=== PATIENT | male | born 1960 | race Caucasian/White ===

== ENCOUNTER 2019-05-07 09:46 | Outpatient (CLI) | payer OTHER ==
[~2019-05-07 09:46] MED LIST: ABILIFY5 MG; LEXAPRO20 MG; LOSARTAN POTASS50 MG
== END 2019-05-07 09:59 | disposition home or self-care (01) ==
LOC: SONOGRAMA 09:46
DX: N20.0 Calculus of kidney (principal); R31.1 Benign essential microscopic hematuria

== ENCOUNTER → 2020-05-30 11:37 | Outpatient (CLI) | payer OTHER ==
[~2020-05-30 11:37] MED LIST changes: +MIRALAX17 GM PO; +NEURONTIN300 MG PO; +OLANZAPINE5 MG PO; +TRAZODONE HCL150 MG PO; +TYLENOL ARTHRI650 MG PO; +ULTRAM50 MG PO; +WELLBUTRIN XL300 MG PO
== END | disposition home or self-care (01) ==
LOC: EKG 11:37
PROVIDERS: ATTEND Surgery
DX: I10 Essential (primary) hypertension (principal)

== ENCOUNTER 2020-06-01 06:05 | Day surgery (SDC) | payer OTHER ==
[~2020-06-01 06:05] MED LIST changes: -MIRALAX17 GM PO; -NEURONTIN300 MG PO; -TYLENOL ARTHRI650 MG PO; -ULTRAM50 MG PO
[2020-06-01] MEDS ORDERED: TYLENOL ARTHRI650 MG PO (09:31)
[2020-06-01] MEDS ORDERED: NEURONTIN300 MG PO (09:31)
[2020-06-01] MEDS ORDERED: MIRALAX17 GM PO (09:31)
[2020-06-01] MEDS ORDERED: ULTRAM50 MG PO (09:31)
== END 2020-06-01 15:10 | disposition home or self-care (01) ==
LOC: CIR.AMB 06:05
PROVIDERS: ATTEND Surgery
DX: K40.91 Unilateral inguinal hernia, without obstruction or gangrene, recurrent (principal); K42.9 Umbilical hernia without obstruction or gangrene; Z20.828 Contact with and (suspected) exposure to other viral communicable diseases

== ENCOUNTER 2021-04-27 08:47 | Outpatient (CLI) | payer OTHER ==
[~2021-04-27 08:47] MED LIST changes: +MIRALAX17 GM PO; +NEURONTIN300 MG PO; +TYLENOL ARTHRI650 MG PO; +ULTRAM50 MG PO
== END 2021-04-27 09:05 | disposition home or self-care (01) ==
LOC: SONOGRAMA 08:47 → MAMO-SONO 09:45
PROVIDERS: ATTEND Internal Medicine
DX: Q61.01 Congenital single renal cyst (principal); R10.84 Generalized abdominal pain

== ENCOUNTER 2021-10-30 08:53 | Outpatient (CLI) | payer OTHER | END 2021-10-30 08:54 | disposition home or self-care (01) | LOC: MRI 08:53 | PROVIDERS: ATTEND Psychiatry & Neurology Psychiatry | DX: F33.2 Major depressive disorder, recurrent severe without psychotic features (principal); G31.89 Other specified degenerative diseases of nervous system | CPT/HCPCS: 70552 ==

== ENCOUNTER 2021-10-30 10:48 | Outpatient (CLI) | payer OTHER | END 2021-10-30 10:54 | disposition home or self-care (01) | LOC: LAB 10:48 | PROVIDERS: ATTEND Radiology Diagnostic Radiology | DX: F33.2 Major depressive disorder, recurrent severe without psychotic features (principal) ==

== ENCOUNTER → 2022-03-22 | Outpatient (CLI) | payer OTHER | END | disposition home or self-care (01) | LOC: LAB 18:59 | PROVIDERS: ATTEND Urology | DX: R97.20 Elevated prostate specific antigen [PSA] (principal) ==

== ENCOUNTER 2023-01-06 07:18 | Outpatient (CLI) | payer OTHER | END 2023-01-06 07:20 | disposition home or self-care (01) | LOC: NUCLEAR 07:18 | PROVIDERS: ATTEND Urology | DX: R07.9 Chest pain, unspecified (principal) ==